=== PATIENT | female | born 1955 | race Caucasian/White ===

== ENCOUNTER → 2016-06-08 | Outpatient (CLI) | payer BC | LOC: RAD 17:01 | PROVIDERS: ATTEND Family Medicine | DX: M79.671 Pain in right foot (principal) ==

== ENCOUNTER → 2016-06-14 | Outpatient (CLI) | payer BC | LOC: RAD 07:31 | PROVIDERS: ATTEND Family Medicine | DX: M79.671 Pain in right foot (principal) | CPT/HCPCS: 73718 ==